=== PATIENT | female | born 1940 ===

== ENCOUNTER 2018-07-28 07:33 | Outpatient (CLI) | payer MEDICARE, OTHER | END 2018-07-28 07:34 | disposition home or self-care (01) | LOC: C.LAB 07:33 ==

== ENCOUNTER 2018-08-18 09:26 | Outpatient (CLI) | payer MEDICARE, OTHER | END 2018-08-18 09:27 | disposition home or self-care (01) | LOC: C.MAMMO 09:27 | DX: Z12.31 Encounter for screening mammogram for malignant neoplasm of breast (principal) ==